=== PATIENT | male | born 1970 ===

== ENCOUNTER 2017-03-20 16:30 | Emergency (ER) | payer BC ==
[2017-03-20 16:31] VITALS: BMI 26.0
[2017-03-20 17:01] VITALS: TEMP 97.8; O2SAT 95
--- NOTE | 2017-03-20 17:14 | ED PDOC ---
Arrival/HPI - General Chief Complaint: GI Problem Time Seen by Provider: 03/20/17 16:56 Historian: Patient - History of Present Illness Narrative History of Present Illness (Text): 03/20/17 17:06 A 46 year old male, whom has no known past medical history, presents to the emergency department complaining of dizziness and nausea since today this afternoon. Patient reports experiencing dizziness but ignored it. Afterwards, when laying down, patient began experiencing nausea and dizziness, with a spinning sensation. Patient notes slight abdominal pain which resolved, right ear pain, nausea, vomiting, and headache, but denies of any chest pain, shortness of breath, sore throat, weakness/numbness of the extremities, urinary output changes, dysuria, rashes, swelling, or any other complaints. Time/Duration: 4-6 hours (today this afternoon) Symptom Onset: Sudden Symptom Course: Unchanged Activities at Onset: Rest, Light Context: Home Past Medical History - Provider Review Nursing Documentation Reviewed: Yes - Cardiac Hx Cardiac Disorders: No - Psychiatric Hx Substance Use: No Family/Social History - Physician Review Nursing Documentation Reviewed: Yes Family/Social History: No Known Family HX Smoking Status: Light Smoker < 10 Cigarettes Daily Hx Alcohol Use: No Hx Substance Use: No Allergies/Home Meds Allergies/Adverse Reactions: Allergies No Known Allergies Allergy (Verified 03/20/17 16:59) Review of Systems - Physician Review All systems were reviewed & negative as marked: Yes - Review of Systems Constitutional: absent: Fevers ENT: Other (R ear pain) Respiratory: absent: SOB, Other (no sore throat) Cardiovascular: absent: Chest Pain Gastrointestinal: Abdominal Pain (minimal), Nausea, Vomiting Genitourinary Male: absent: Dysuria, Urinary Output Changes Skin: absent: Rash, Other (swelling) Neurological: Headache, Dizziness. absent: Other (weakness/numbness of the extremities) Physical Exam Vital Signs Reviewed: Yes Vital Signs Temp Pulse Resp BP Pulse Ox 03/20/17 17:00 97.8 F 67 15 138/87 95 Temperature: Afebrile Blood Pressure: Normal Pulse: Regular Respiratory Rate: Normal Appearance: Positive for: Well-Appearing Pain Distress: None Mental Status: Positive for: Alert and Oriented X 3 - Systems Exam Head: Present: Atraumatic, Normocephalic Pupils: Present: PERRL Extroacular Muscles: Present: EOMI Conjunctiva: Present: Normal Ears: Present: TM Bulging (right ear yellowish and bulging; no light reflex) Mouth: Present: Moist Mucous Membranes Pharnyx: Present: Normal. No: ERYTHEMA, EXUDATE Neck: Present: Normal Range of Motion Respiratory/Chest: Present: Clear to Auscultation, Good Air Exchange. No: Respiratory Distress, Accessory Muscle Use Cardiovascular: Present: Regular Rate and Rhythm, Normal S1, S2. No: Murmurs Abdomen: Present: Normal Bowel Sounds. No: Tenderness, Distention, Peritoneal Signs Back: Present: Normal Inspection Upper Extremity: Present: Normal Inspection. No: Cyanosis, Edema Lower Extremity: Present: Normal Inspection. No: Edema Neurological: Present: GCS=15, CN II-XII Intact, Speech Normal, Motor Func Grossly Intact Skin: Present: Warm, Dry, Normal Color. No: Rashes Psychiatric: Present: Alert, Oriented x 3, Normal Insight, Normal Concentration Medical Decision Making ED Course and Treatment: 03/20/17 17:15 Impression: 46 year old male with dizziness and nausea. Physical exam shows right otitis media. He has no abdominal tenderness or pain at this time. Plan: -- EKG -- Head CT -- Labs -- Zofran -- Pepcid -- Antivert -- IV Fluids -- Reassess and disposition Prior Visits: Notes and results from previous visits were reviewed. Patient was last seen in the emergency department on 08/26/2016 for cough, sore throat, nasal congestion , mylagias, and fever. Patient was discharged home. Progress Notes: 03/20/2017 17:40 EKG: Ordered, reviewed, and independently interpreted the EKG. Rate : 59 BPM Rhythm : Sinus bradycardia Interpretation : Rightward axis, borderline ECG Comparison : No previous EKG for comparison. 03/20/2017 18:[address] FINDINGS: HEMORRHAGE: No acute parenchymal, subarachnoid or extra-axial hemorrhage. BRAIN: No evidence of large acute infarct. No obvious parenchymal nor extra- axial mass or collection. Suspect dilated perivascular space left inferior basal ganglia Ventricular and sulcal size are within range of normal this patient's stated age. VENTRICLES: No obstructive hydrocephalus. CALVARIUM: Unremarkable. PARANASAL SINUSES: Subtotal opacification right maxillary sinus. There is also mucosal thickening changes within multiple ethmoid air cells and right chamber sphenoid sinus. Prominent adenoids. MASTOID AIR CELLS: Underpneumatized/ sclerotic right mastoid air complex associated with partial opacification of multiple mastoid air cells. . OTHER FINDINGS: None. IMPRESSION: No acute intracranial hemorrhage. Sclerotic underpneumatized right maxillary antrum associated with partial opacification of multiple mastoid air cells Dictator : Raudel Castañeda MD 03/20/17 19:04 Patient likely with right otitis media with vertigo. He is feeling much better after IVF, pepcid, and zofran. No abdominal tenderness or pain at this time. Labs with mild leukocytosis. Will d/c on abx, meclizine, and zofran. 03/20/17 19:08 - Lab Interpretations Lab Results: 03/20/17 17:30 03/20/17 17:30 Lab Results 03/20/17 17:30: Sodium 141, Potassium 3.9, Chloride 103, Carbon Dioxide 28, Anion Gap 14, BUN 18, Creatinine 0.7, Est GFR ( Amer) > 60, Est GFR (Non- Af Amer) > 60, Random Glucose 114 H, Calcium 9.1, Magnesium 2.0, Total Bilirubin 0.4, AST 51, ALT 102 H, Alkaline Phosphatase 72, Lactate Dehydrogenase 416, Total Creatine Kinase 111, Troponin I < 0.01, Total Protein 7.8, Albumin 4.6, Globulin 3.2, Albumin/Globulin Ratio 1.4, Lipase 49 03/20/17 17:30: WBC 13.9 H, RBC 4.94, Hgb 15.0, Hct 43.4, MCV 87.9, MCH 30.4, MCHC 34.6, RDW 12.3, Plt Count 298, MPV 9.3, Gran % 82.5 H, Lymph % (Auto) 11.8 L, [place] % (Auto) 4.9, Eos % (Auto) 0.7 L, Baso % (Auto) 0.1, Gran # 11.43 H, Lymph # 1.6, [place] # 0.7 H, Eos # 0.1, Baso # 0.01 I have reviewed the lab results: Yes - RAD Interpretation Radiology Orders: 03/20/17 17:19 Brain [HEAD W/O CONTRAST] [CT] Stat - Medication Orders Current Medication Orders: Discontinued Medications Famotidine (Pepcid) 20 mg IVP STAT STA Stop: 03/20/17 17:19 Last Admin: 03/20/17 17:48 Dose: 20 mg Sodium Chloride (Sodium Chloride 0.9%) 1,000 mls @ 999 mls/hr IV .Q1H1M STA Stop: 03/20/17 18:18 Last Admin: 03/20/17 17:48 Dose: 999 mls/hr Meclizine HCl (Antivert) 12.5 mg PO STAT STA Stop: 03/20/17 17:20 Last Admin: 03/20/17 17:49 Dose: 12.5 mg Ondansetron HCl (Zofran Inj) 4 mg IVP STAT STA Stop: 03/20/17 17:19 Last Admin: 03/20/17 17:49 Dose: 4 mg - Scribe Statement The provider has reviewed the documentation as recorded by the Semaj Ro Provider Scribe Attestation: All medical record entries made by the Scribe were at my direction and personally dictated by me. I have reviewed the chart and agree that the record accurately reflects my personal performance of the history, physical exam, medical decision making, and the department course for this patient. I have also personally directed, reviewed, and agree with the discharge instructions and disposition. Disposition/Present on Arrival - Present on Arrival Any Indicators Present on Arrival: No History of DVT/PE: No History of Uncontrolled Diabetes: No Urinary Catheter: No History of Decub. Ulcer: No History Surgical Site Infection Following: None - Disposition Have Diagnosis and Disposition been Completed?: Yes Diagnosis: Vertigo, Right otitis media Disposition: HOME/ ROUTINE Disposition Time: 18:45 Patient Plan: Discharge Condition: GOOD Discharge Instructions (ExitCare): Vertigo (ED), Otitis Media (ED) Additional Instructions: Take the antibiotics as prescribed. Take the meclizine as needed. Follow up with primary care. Return to the emergency department if any new concerning symptoms. Prescriptions: Amoxicillin [Amoxil 500 mg Cap] 1 cap PO TID #30 cap Meclizine [Antivert] 1 tab PO TID PRN #15 tab PRN Reason: Dizziness Ondansetron ODT [Zofran ODT] 1 tab PO Q8H PRN #10 odt PRN Reason: Nausea/Vomiting Referrals: Chichi Metz MD [Staff Provider] - Follow up with primary Forms: [employer] (Russian)
[2017-03-20] MEDS ORDERED: Sodium Chloride 0.9% 1,000 ML IV STA (17:18)
[2017-03-20 17:57] LABS: BASO # 0.01 K/mm3 (0.0-2.0); BASO % 0.1 % (0.0-3.0); EOS # 0.1 (0.0-0.7); EOS % 0.7 % (1.5-5.0); GRAN # 11.43 (1.4-6.5); GRAN % 82.5 % (50.0-68.0); HEMATOCRIT 43.4 % (42.0-52.0); LYMPH # 1.6 (1.2-3.4); LYMPH % 11.8 % (22.0-35.0); MEAN CELL VOLUME 87.9 fl (80.0-105.0); MEAN CORPUSCULAR HEMOGLOBIN 30.4 pg (25.0-35.0); MEAN CORPUSCULAR HGB CONC 34.6 g/dl (31.0-37.0); MEAN PLATELET VOLUME 9.3 fl (7.0-11.0); MONO # 0.7 (0.1-0.6); MONO % 4.9 % (1.0-6.0); RED CELL DISTRIBUTION WIDTH 12.3 % (11.5-14.5); WHITE BLOOD COUNT 13.9 10^3/ul (4.5-11.0)
[2017-03-20 17:59] LABS: ALB/GLOB RATIO 1.4 (1.1-1.8); ALKALINE PHOSPHATASE 72 U/L (38-133); ALT/SGPT 102 U/L (7-56); AST/SGOT 51 U/L (15-59); BILIRUBIN,TOTAL 0.4 mg/dL (0.2-1.3); BLOOD UREA NITROGEN 18 mg/dL (7-21); CALCIUM 9.1 mg/dL (8.4-10.5); CARBON DIOXIDE 28 mmol/L (21-33); CHLORIDE 103 mmol/L (98-107); GFR AFRICAN-AMERICAN > 60; GLUCOSE,RANDOM 114 mg/dL (70-110); LIPASE 49 U/L (23-300); POTASSIUM 3.9 mmol/L (3.6-5.0); SODIUM 141 mmol/L (132-148); TOTAL PROTEIN 7.8 g/dL (5.8-8.3)
[2017-03-20 18:14] LABS: TROPONIN I < 0.01 ng/mL
--- NOTE | 2017-03-20 18:28 | CT ---
PROCEDURE: CT HEAD WITHOUT CONTRAST. HISTORY: dizzy, headache COMPARISON: None available. TECHNIQUE: Axial computed tomography images were obtained through the head/brain without intravenous contrast. Radiation dose: Total exam DLP = 774.23 mGy-cm. This CT exam was performed using one or more of the following dose reduction techniques: Automated exposure control, adjustment of the mA and/or kV according to patient size, and/or use of iterative reconstruction technique. FINDINGS: HEMORRHAGE: No acute parenchymal, subarachnoid or extra-axial hemorrhage. BRAIN: No evidence of large acute infarct. No obvious parenchymal nor extra-axial mass or collection. Suspect dilated perivascular space left inferior basal ganglia Ventricular and sulcal size are within range of normal this patient's stated age. VENTRICLES: No obstructive hydrocephalus. CALVARIUM: Unremarkable. PARANASAL SINUSES: Subtotal opacification right maxillary sinus. There is also mucosal thickening changes within multiple ethmoid air cells and right chamber sphenoid sinus. Prominent adenoids. MASTOID AIR CELLS: Underpneumatized/ sclerotic right mastoid air complex associated with partial opacification of multiple mastoid air cells. . OTHER FINDINGS: None. IMPRESSION: No acute intracranial hemorrhage. . Sclerotic underpneumatized right maxillary antrum associated with partial opacification of multiple mastoid air cells
[2017-03-20 19:11] VITALS: BP 135/79; PULSE 65; RESP 18
--- NOTE | 2017-03-20 21:41 | CARD ---
APPROVED REPORT EKG Measurement Heart [id number] <Conclusion> Poor data quality, interpretation may be adversely affected Sinus bradycardia Rightward axis Borderline ECG
== END 2017-03-20 19:15 | disposition home or self-care (01) ==
LOC: ED 16:30
DX: H66.91 Otitis media, unspecified, right ear (principal); R42 Dizziness and giddiness
CPT/HCPCS: 70450; 80053; 82550; 83615; 83690; 83735; 84484; 85025; 93005; 96361; 96374; 96375; 99283; J2405; J7040